=== PATIENT | female | born 1935 | race Caucasian/White ===

== ENCOUNTER → 2017-12-28 | Day surgery (SDC) | payer MEDICARE, BC ==
[~2017-12-28] VITALS: Ht 158.8 cm; Wt 61.6 kg
[~2017-12-28] MED LIST: ASPI1TAB57 PO; BACITRACIN TOP OINT 15 GM TUBE ONE; BUPIVACAINE/EPINEPHRINE 0.25% 50 ML VIAL ONE; CALC1TAB87 PO; CHLORHEXIDINE GLUCONATE 2 % 1 PACK (2 CLOTHS) TOPICAL PRN; CHOL10008; DEXAMETHASONE SOD PHOS 4 MG/ML VIAL IV ONE; DO NOT ADM ANY ANTICOAGULANT DRUGS PRN; ESMOLOL HCL 100 MG/10 ML VIAL IV ONE; GLYCOPYRROLATE 1 MG/5 ML SYRINGE IV PUSH ONE; LACTATED RINGER'S 1000 ML IV PRN; LEVO50TA4 PO; LIDOCAINE HCL 1% PF 5 ML SYRINGE OTHER ONE; METOPROLOL TARTRATE 25 MG TAB PO PRN; NEOSTIGMINE 5 MG/5 ML SYRINGE IV PUSH ONE; ONDANSETRON HCL 4 MG/2 ML VIAL IV ONE; POVIDONE IODINE 5% (ANTISEPSIS KIT) 4 APPLICATIONS EACH NARE PRN; RALO60 PO; ROCURONIUM INJ 50 MG/5 ML SYRINGE IV PUSH ONE; ROSU10 PO; SODIUM CHLORID 0.9% 500 ML IV PRN; TRIA1CAP6 PO; oxyCODONE/ACETAMINOPHEN 5 MG/325 MG TAB PO PRN
[2017-12-28 10:19] LABS: AUTOMATED NEUTROPHIL # 5.3 TH/MM3 (1.8-7.7); BASOPHIL % 0.5 % (0.0-2.0); EOSINOPHIL # 0.3 TH/MM3 (0-0.4); EOSINOPHIL % 3.3 % (0.0-4.0); HEMATOCRIT 40.8 % (35.0-46.0); HEMOGLOBIN 14.3 GM/DL (11.6-15.3); LYMPH % 19.9 % (9.0-44.0); LYMPHOCYTE # 1.5 TH/MM3 (1.0-4.8); MEAN CELL VOLUME 91.5 FL (80.0-100.0); MEAN CORPUSCULAR HGB CONC 34.9 % (32.0-36.0); MEAN PLATELET VOLUME 7.8 FL (7.0-11.0); MONO % 7.3 % (0.0-8.0); MONOCYTE # 0.6 TH/MM3 (0-0.9); PLATELET COUNT 228 TH/MM3 (150-450); RED BLOOD COUNT 4.46 MIL/MM3 (4.00-5.30); RED CELL DISTRIBUTION WIDTH 12.9 % (11.6-17.2); WHITE BLOOD COUNT 7.7 TH/MM3 (4.0-11.0)
[2017-12-28] MEDS: ceFAZolin 1,000 MG/NS 100 ML IV SCH ×4 (11:12→11:58)
[2017-12-28 14:01] VITALS: BP 145/69; PULSE 60; RESP 18; TEMP 97.2; O2SAT 97
--- NOTE | 2017-12-28 15:22 | EKG ---
Date Performed: 12/28/2017 Time Performed: 09:17:31 PTAGE: 82 years EKG: Sinus rhythm WITH FIRST DEGREE AV BLOCK NONSPECIFIC ST & T-WAVE ABNORMALITY Clinical correlation is recommended A BNORMAL ECG NO PREVIOUS TRACING DOCTOR: Kwabena Momin Interpretating Date/Time 12/28/2017 15:21:52
--- NOTE | 2018-01-01 20:02 | PD.OP ---
Operative Report Date of Surgery: Dec 28, 2017 Preoperative Diagnosis: (1) Scalp wound Postoperative Diagnosis: (1) Scalp wound Procedure: Complex wound closure of scalp (20340) Surgeon: Ab Swenson Crossing Flagman(s): . 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 Risks benefits and alternative treatments were discussed. All questions answered. Patient expressed understanding. Patient elected to assume the risks of complex wound closure of above wound. Informed consent obtained. Surgical site was marked in the preoperative holding bay. Patient was given antibiotics on-call to the operating room. The patient was taken to the operating room. All pressure points were padded. A surgical timeout was performed. After the smooth induction of general anesthesia, the surgical site was shaved as necessary using clippers. The area adjacent to the wound was instilled with quarter percent Marcaine with epinephrine. The surgical site was prepped and draped in the usual sterile fashion. The wound measured roughly 3.5 cm in its greatest dimension. The edges of the skin were mobilized roughly 1 cm diameter from the underlying galea. This did not allow sufficient laxity for wound reapproximation. The galea at the depth of the wound was excised roughly half a centimeter in diameter. The galea was then mobilized roughly 8 cm in all directions. This allowed for wound closure without undue tension. Surgical site was irrigated. Hemostasis was ensured. The galea was reapproximated using interrupted 3-0 Vicryl. The skin was reapproximated using interrupted 4O nylons in a vertical mattress fashion. Surgical site was cleaned and dressed with bacitracin Xeroform gauze dry gauze ABD and a craniotomy stockinette. The patient was awoken from anesthesia and arrived stable doing well to the PACU. All needle sponge and instrument counts were correct 2. Ab Swenson MD Jan 01, 2018 20:02
== END | disposition home or self-care (01) ==
LOC: HSDC 08:43
PROVIDERS: ATTEND Student in an Organized Health Care Education/Training Program
DX: Z48.1 Encounter for planned postprocedural wound closure (principal); C44.42 Squamous cell carcinoma of skin of scalp and neck; I10 Essential (primary) hypertension; R94.31 Abnormal electrocardiogram [ECG] [EKG]; E78.00 Pure hypercholesterolemia, unspecified; Z01.810 Encounter for preprocedural cardiovascular examination; Z01.818 Encounter for other preprocedural examination
CPT/HCPCS: 00300; 13121; 85025; 93005; J0690; J1100; J2405; J2710; J3010; J7120